=== PATIENT | male | born 1980 | race Caucasian/White ===

== ENCOUNTER 2025-06-26 05:21 | Emergency (ER) | payer OTHER ==
[~2025-06-26] VITALS: Ht 177.8 cm; Wt 79.0 kg
[2025-06-26 05:32] VITALS: O2SAT 98
[2025-06-26] MEDS: ONDANSETRON HCL 4MG/2ML INJ IV ONE (07:47)
[2025-06-26] MEDS: SODIUM CHLORIDE 0.9% 1,000 ML IV ONE (07:48)
[2025-06-26 08:38] LABS: HEMATOCRIT. 45.4 % (42.0-52.0); HEMOGLOBIN. 14.5 g/dL (14.0-18.0); MEAN PLATELET VOLUME 8.3 fl (7.4-10.4); PLATELET 204 x1000/uL (130-400); RED BLOOD CELL COUNT 4.92 mill/uL (4.7-6.1); RED CELL DISTRIBUTION WIDTH 13.5 % (11.6-14.6)
[2025-06-26 09:06] LABS: CREATININE 1.0 mg/dL (0.6-1.3)
[2025-06-26 09:07] LABS: UREA NITROGEN BLOOD 14 mg/dL (9-23)
[2025-06-26 09:37] LABS: BAND% 2.0 % (1.0-6.0); LYMPHOCYTES % MANUAL 4.0 % (20.0-50.0); MONOCYTES % MANUAL 6.0 % (2.0-8.0); NEUTROPHILS % MANUAL 88.0 % (45.0-75.0); PLATELET ESTIMATE NORMAL
[2025-06-26 10:45] VITALS: BP 99/66; PULSE 89; RESP 12; TEMP 36.7; O2SAT 99
[2025-06-26 11:21] LABS: CLARITY URINE CLEAR (CLEAR); COLOR URINE YELLOW (YELLOW); GLUCOSE URINE 3+ (NEGATIVE); KETONES URINE NEGATIVE (NEGATIVE); LEUKOCYTE ESTERASE URINE NEGATIVE (NEGATIVE); NITRITE URINE NEGATIVE (NEGATIVE); OCCULT BLOOD URINE NEGATIVE (NEGATIVE); PH URINE 5.5 (4.5-8.0); PROTEIN URINE TRACE (NEGATIVE); SPECIFIC GRAVITY URINE 1.033 (1.005-1.030); UROBILINOGEN URINE 1.0 E.U./dL (0.2-1.0)
[2025-06-26 11:36] LABS: *AMPHETAMINES SCREEN URINE NEGATIVE (NEGATIVE); *BARBITURATES SCREEN URINE NEGATIVE (NEGATIVE); *BENZODIAZEPINES SCREEN URINE NEGATIVE (NEGATIVE)
[2025-06-26 11:37] LABS: *COCAINE SCREEN URINE NEGATIVE (NEGATIVE); CANNABINOID URINE SCREEN PRESUMPTIVE POSITIVE (NEGATIVE); ECSTASY MDMA SCREEN URINE NEGATIVE (NEGATIVE); METHADONE URINE SCREEN NEGATIVE (NEGATIVE); OPIATES URINE SCREEN NEGATIVE (NEGATIVE); PHENCYCLIDINE URINE SCREEN NEGATIVE (NEGATIVE)
[2025-06-26 11:51] LABS: BACTERIA URINE NONE SEEN; RBC URINE 0-2 /hpf (0-2); SQUAMOUS EPITHELIAL CELL URINE RARE /lpf (RARE/1+); WBC URINE 0-2 /hpf (0-2); YEAST URINE NONE SEEN
== END 2025-06-26 11:12 | disposition left against medical advice (07) ==
LOC: ER 05:21 → EDBEDREQSVC 08:56 → EDBEDREQTM 08:56 → EDBEDREQ 08:56 → ENRESERV 09:41 → ER 11:12 → CMPBEDREQ 13:01
DX: F12.929 Cannabis use, unspecified with intoxication, unspecified (principal); Z79.899 Other long term (current) drug therapy
CPT/HCPCS: 80305; 80048; 81003; 80320; 85025; 36415; 96361; 96374; 99283; J2405; J7030; G0480